=== PATIENT | male | born 1965 | race Caucasian/White ===

== ENCOUNTER 2025-02-13 19:23 | Emergency (ER) | payer SELFPAY ==
[2025-02-13] MEDS ORDERED: Dexamethasone 10 MG/ML VIAL ONE (19:44)
[2025-02-13] MEDS ORDERED: Nitroglycerin 2% Ointment 1 INCH/1 GM Packet ONE (19:44)
[2025-02-13] MEDS ORDERED: Furosemide 40 MG (4 mL) VIAL ONE (19:44)
[2025-02-13 19:49] LABS: #Basophils 0.2 thou/uL (0.0-0.2); #Eosinophils 0.1 thou/uL (0.0-0.7); #Lymphocytes 2.4 thou/uL (1.20-3.40); #Monocytes 0.7 thou/uL (0.11-0.59); #Neutrophils 8.0 thou/uL (1.40-6.50); %Basophils 1.4 % (0.0-1.0); %Eosinophils 1.0 % (0.0-10.0); %Lymphocytes 20.8 % (21.0-51.0); %Monocytes 6.5 % (0.0-10.0); %Neutrophils 70.4 % (42.0-75.0); Hematocrit 43.3 % (42.0-52.0); Hemoglobin 13.8 g/dL (14.0-18.0); Mean Corpuscular Hemoglobin 29.9 pg (27.0-31.0); Mean Corpuscular Volume 94.0 fl (78.0-98.0); Platelet Count 412 10x3/uL (130-400); Red Blood Cell (RBC) Count 4.61 mill/uL (4.70-6.10); White Blood Cell (WBC) Count 11.4 10x3/uL (4.8-10.8)
[2025-02-13 20:01] LABS: Acetaminophen Less than 10 mcg/mL (Less than 10); Magnesium 2.2 mg/dL (1.6-2.6); Salicylate Less than 8.0 mg/dL (Less than 8.0)
[2025-02-13 20:03] LABS: ALT (SGPT) 59 U/L (Less than 45); AST (SGOT) 217 U/L (11-34); Albumin 3.7 g/dL (3.1-4.5); Alkaline Phosphatase 84 U/L (40-110); Anion Gap 16 mmol/L (10-20); BUN (Urea Nitrogen) 19 mg/dL (8.4-25.7); Bilirubin, Total 0.4 mg/dL (0.3-1.2); Calc. Creatinine Clearance 0 mL/min (70-130); Calcium 9.0 mg/dL (7.8-10.44); Carbon Dioxide 22 mmol/L (22-29); Chloride 105 mmol/L (98-107); Globulin 3.3 g/dL (2.4-3.5); Glucose 121 mg/dL (70-105); Potassium 4.0 mmol/L (3.5-5.1); Sodium 139 mmol/L (136-145)
[2025-02-13] MEDS ORDERED: Enoxaparin 100 MG (1 mL) SYRINGE ONE (20:07)
[2025-02-13 20:08] LABS: INR-International Normal Ratio 1.1; Prothrombin Time 14.2 sec (12.0-14.7)
[2025-02-13] MEDS ORDERED: Aspirin Chewable 81 MG TAB ONE (20:08)
[2025-02-13] MEDS ORDERED: cefTRIAXone (ROCEPHIN) 1 GM VIAL ONE (20:08)
[2025-02-13 20:09] LABS: PTT 35.3 sec (22.9-36.1)
[2025-02-13 20:11] LABS: D-Dimer Test 1.81 mcg/mL (0.27-0.43)
[2025-02-13] MEDS ORDERED: Heparin 10,000 UNITS/ 10 ML VIAL ONE (20:42)
[2025-02-13] MEDS ORDERED: Nitroglycerin 50 MG/250 ML BOT 250 ML ONE (20:42)
[2025-02-13 20:49] LABS: Cocaine Metabolite Screen Negative (Negative); THC/Cannabinoid Screen Negative (Negative); Tricyclic Screen Negative (Negative)
== END 2025-02-13 21:32 | disposition short-term general hospital (02) ==
LOC: MADERS 19:23
DX: I21.4 Non-ST elevation (NSTEMI) myocardial infarction (principal); I50.9 Heart failure, unspecified; F17.210 Nicotine dependence, cigarettes, uncomplicated
CPT/HCPCS: 36415; 71045; 80053; 80306; 80307; 83605; 83735; 83880; 84484; 85025; 85379; 85610; 85730; 87040; 87428; 93005; 96365; 96374; 96375; J0696; J1100; J1644; J1650; J1940